=== PATIENT | female | born 1985 | race Caucasian/White ===

== ENCOUNTER → 2017-06-12 15:04 | Outpatient (CLI) | payer SELFPAY ==
[2017-06-12 18:15] LABS: Group B Strep DNA By PCR Negative (Negative); Internal Control PASS; Probe Check PASS; Specimen Processing Control PASS
== END ==
PROVIDERS: Visit Provider Obstetrics & Gynecology
DX: Z36.85 Encounter for antenatal screening for Streptococcus B (principal)
CPT/HCPCS: 87081; 87653

== ENCOUNTER 2017-07-18 03:20 | Inpatient (IN) | payer SELFPAY ==
[2017-07-18 03:43] VITALS: BMI 28.2
[2017-07-18] MEDS: Lactated Ringers 1,000 ML 50 ML IV ×5 (04:14→20:45)
[2017-07-18 04:48] LABS: Hemoglobin 12.5 g/dl (12.0-15.0); Mean Corp Hgb Conc 34.7 g/gl (32-36); Mean Corpuscular Hgb 33.6 pg (27.0-32.0); Mean Corpuscular Volume 96.8 fL (81-99); Mean Platelet Vol. 9.9 fl (6.2-12.0); Platelet Count 229 K/mm3 (150-450); RBC Distribution Width CV 11.8 % (11.6-14.6); RBC Distribution Width SD 40.1 fl (35.1-43.9); Red Blood Count 3.72 M/mm3 (4.2-5.4); White Blood Count 11.4 K/mm3 (4.4-11.0)
[2017-07-18 04:55] LABS: Scan Indicated on CBC? Y/N NO
[2017-07-18] MEDS: Amnioinfusion- 0.9% NS 1,000 ML IV.SOLN. 300 ML INTRA-UTER (07:08)
[2017-07-18] MEDS: Oxytocin 30 units/NS 500 ml 30 UNITS/500 ML IV.SOLN IV (07:40)
--- NOTE | 2017-07-18 08:19 | PCM.PN.BLA ---
Progress Note from check in on patient at approx 07:25 40 5/7 wk SROM Meconium stained fluid, mod Comfortable w/ epidural AVSS Pitocin not started yet EFM 130-140s with avg variability accels. Variable deceleration noted with exam and IUPC placement, scalp lead placed 1 1/2 min decel to 60-90 bpm UCs noted q 4-6 mins Do not appear adequate by MVU CX per last RN check / -2 A/P; 40 5/7 wk SROM mod mec. EFM overall reassuring category I tracing. UCs inadequate. Begin pitocin per protocol Amnioinfusion to start (one variable and for meconium) and IUPC placed to monitor adequate labor. Watch progress, descent and tolerance of labor.
--- NOTE | 2017-07-18 12:28 | PCM.PN.BLA ---
Progress Note LABOR PROGRESS NOTE Category I tracing as long as no Pitocin augmentation. AVSS EFM 130-140s avg variability. Accels. occasional early decelerations. Deep variables with pitocin (last one about 3 hr ago) UCS inadequate mVUs at 5-8 mins CX: last check 5-6/90/-2 A/P: continue spont labor. Likely to be C/S due to FTP / CPD. UCs inadequate and not able to start / continue Pitocin
[2017-07-18] MEDS: Ondansetron 4 MG/2 ML Vial IV (14:44)
--- NOTE | 2017-07-18 16:56 | PCM.PN.BLA ---
Progress Note LABOR PROGRESS NOTE Comfortable w/ epidural AVSS no pitocin at baby had not tolerated earlier in day IFM: category I tracing. 130s with avg variability. Good scalp stim with exam. Accels. UCs appear inadequate by mVUs CX: vtx remains high thick anterior lip 50%/ 6/ -2 with molding noted. A/P: 40 5/7 wk SROM progression to 6 cm. Inadequate UCs and pitocin off since this am. May restart pitocin in attempt for adequate UCs. Fetus has not tolerated this prior. continue observation of labor for now.
--- NOTE | 2017-07-18 19:54 | PCM.PN.OB ---
Subjective: Comfortable with epidural. Does not feel contractions. Objective: Afeb VSS. Contractions q4-5 minutes. FHR tracing CAT 1. - Physical Exam General: Alert, Oriented x3, Cooperative, No apparent distress Lungs: Clear to auscultation, Normal air movement Cardiovascular: Regular rate, Regular Rhythm Abdomen: Soft, Non Tender, Non-Distended, Gravid, Appropriate for Gestational Age Extremities: No edema Skin: No rashes Neurological: Neuro grossly intact Psych/Mental Status: Normal Affect Comment: CE FD +1 station Weight: 169 lb 8.568 oz Body Mass Index (BMI) 28.2 Intake and Output for Last 24 Hours 07/16/17 07/17/17 07/18/17 23:59 23:59 23:59 Intake Total 7060 / 7060 Output Total 3500 / 3500 Balance 3560 / 3560 Laboratory Tests Past 24 Hrs 07/18/17 07/18/17 04:14 04:14 WBC 11.4 H RBC 3.72 L Hgb 12.5 Hct 36.0 L MCV 96.8 MCH 33.6 H MCHC 34.7 RDW 11.8 RDW Differential 40.1 Plt Count 229 MPV 9.9 Blood Type O POSITIVE Antibody Screen NEGATIVE Assessment/Plan Will start pushing efforts.
[2017-07-18] MEDS: Oxytocin 30 units/NS 500 ml 30 UNITS/500 ML IV.SOLN 334 UNITS IV (22:19)
--- NOTE | 2017-07-18 22:46 | OP.PCM_ITS ---
- Problem List (1) Active labor at term Status: Acute Vaginal Delivery Maternal Presentation: Active Labor, Spontaneous Rupture of Membranes Presented at [id number] with SROM and contractions. Amniotic Membrane Rupture Type: Spontaneous at home Rupture of Membrane time: 129 Amniotic Fluid Description: Clear Final NKECHI: 07/13/17 Final NKECHI Source: US <20 weeks Gestational age: 40 Weeks and 5 Days Clifford doctor who attended delivery (if requested by OB): Kayli Dawkins Date of Procedure: 07/18/17 Pre-Operative Diagnosis: Labor Post-Operative Diagnosis: Same Surgery/ Procedure Performed: Vacuum Assisted Vaginal Delivery Anesthesiologist: Bert Carmona Type of Anesthesia: Epidural Description of Procedure: Amita progressed over the day to FD then pushed for 2 1/2 hours to bring the baby's head to +3 station. Due to maternal fatigue and swollen perineum decision made to assist delivery with Kiwi vacuum. The Kiwi was applied and using gentle traction over 2 pushing efforts the head was delivered to the perineum. The rest of the delivery was uncomplicated. There was an active cry at delivery. Delayed cord clamping was employed. Cord bloods were collected. Apgars were 8/9. The placenta was delivered spontaneously intact with a centrally located 3VC. The uterus contracted well. Inspection revealed an intact cervix and upper vagina. A second degree posterior vagina/perineal tear was repaired with 2-0 vicryl. A small left periurethral first degree tear was repaired with 3-0 Rapide suture. Presentation: Vertex Placental Delivery Description: Spontaneous Placenta Disposition: [facility] Percentage of Placenta Abruption: 0 Cord Vessel Description: 3 Vessels Nuchal Cord Compression: Without compression Cord Entanglement: None Drain: Ren to straight drain Estimated Blood Loss: 400cc Infant A gender: Male (1 minute): 8 (5 minute): 9 Episiotomy Description: None Laceration: Midline, Periurethral Extnsion/lac - first degree, Perineal Extension/lac, Vaginal Extension/lac, 2nd degree Medications given after delivery: IV Pitocin Complications: None
[2017-07-18] MEDS: Oxytocin 30 units/NS 500 ml 30 UNITS/500 ML IV.SOLN 167 UNITS IV (22:49)
--- NOTE | 2017-07-18 22:53 | DCINST_ITS ---
Discharge Diet: No Restrictions Discharge Activity: Return to Normal Activity, May Drive, May Shower Return to work on:: 09/17/17 May resume sexual activity in: 4-6 weeks Call your doctor if your incision/area has: Sudden Increased Bleeding, Increased Pain/ Swelling, Increased Redness, Foul Smelling Discharge Call your doctor if you observe: Fever of 101 or Higher, Inability to urinate, Inability to have a bowel movement, Using more than one pad per hour, Shortness of breath, Chest pain, Calf discomfort, Uncontrolled pain Cleanse incision/area with: Soap & Water Additional Instructions: If you experience any of the following, contact your healthcare provider. * Bleeding that soaks a pad every hour for 2 hours * Fever 100.4 or higher * Unrelieved incision or abdominal pain * Swelling, redness, discharge or bleeding from your incision or episiotomy site * Your incision begins to separate * Problems urinating (including inability to urinate or burning while urinating) . * Visual changes * Severe headache * Flu-like symptoms * Pain or redness in one of both of your breasts * Pain, warmth, tenderness or swelling in your legs, especially the calf area * Frequent nausea and vomiting * Symptoms of depression or anxiety If you experience any of the following, call 911 or go to the nearest Emergency Room. * Chest pain * Problems breathing * Seizure activity * Partial or complete paralysis of a body part, slurred speech, weakness or drooping of the face, or a sudden inability to walk or hold your balance Allergies/Adverse Reactions: Allergies No Known Allergies Allergy (Verified 05/01/15 18:42) Medications to take at Discharge Folic Acid 0.8 mg PO DAILY@0800 07/18/17 Ibuprofen [Motrin] 800 mg PO TID PRN PRN #30 tab 07/18/17 Vits [Prenatabs FA ] 1 tablet PO DAILY 07/18/17 The following prescriptions were given: Ibuprofen [Motrin] 800 mg PO TID PRN PRN #30 tab PRN Reason: Pain or cramping Please Follow Up With: Maria De Jesus Oconnor MD When: 6 weeks Primary Care Physician: Jann Rutledge MD [Primary Care Provider] - Proposed Discharge Date: 07/20/17
[2017-07-19 05:15] VITALS: BP 101/76; PULSE 103; RESP 18; TEMP 36.6
[2017-07-19 06:39] LABS: Hematocrit 31.6 % (37-47); Hemoglobin 10.7 g/dl (12.0-15.0); Mean Corp Hgb Conc 33.9 g/gl (32-36); Mean Corpuscular Hgb 33.6 pg (27.0-32.0); Mean Corpuscular Volume 99.4 fL (81-99); Mean Platelet Vol. 9.7 fl (6.2-12.0); Platelet Count 182 K/mm3 (150-450); RBC Distribution Width CV 11.9 % (11.6-14.6); RBC Distribution Width SD 41.8 fl (35.1-43.9); Red Blood Count 3.18 M/mm3 (4.2-5.4); White Blood Count 18.2 K/mm3 (4.4-11.0)
[2017-07-19 06:54] LABS: Scan Indicated on CBC? Y/N NO
--- NOTE | 2017-07-19 07:24 | PCM.PN.OB ---
Patient Problems: Active and Suspected Problems Active labor at term (Acute) Subjective: Cramping in minimal. She feels well this morning. Notes mild lightheadedness when out of bed once yesterday. No complaints. She is . Objective: AVSS - Physical Exam General: Alert, Oriented x3, Cooperative, No apparent distress HEENT: Atraumatic, Normocephalic Lungs: Clear to auscultation, Normal air movement Cardiovascular: Regular rate, Regular Rhythm, Normal S1, Normal S2 Abdomen: Soft, Non Tender, Non-Distended, - - Fundus firm, nontender at umbilicus - rectus diastasis, lochia scant, vulvar edema - mild Extremities: No edema, No Calf Tenderness Neurological: Neuro grossly intact Psych/Mental Status: Normal Affect, Appropriate, Alert and oriented to time, place, person, mood and affect Vital Signs Temp Pulse Resp BP 97.9 F 103 H 18 101/76 07/19/17 05:15 07/19/17 05:15 07/19/17 05:15 07/19/17 05:15 Oxygen Delivery Method Room Air Weight: 76.9 kg Body Mass Index (BMI) 28.2 Intake and Output for Last 24 Hours 07/17/17 07/18/17 07/19/17 23:59 23:59 23:59 Intake Total 7060 / 7060 Output Total 3500 / 3500 Balance 3560 / 3560 Laboratory Tests Past 24 Hrs 07/19/17 06:20 WBC 18.2 H RBC 3.18 L Hgb 10.7 L Hct 31.6 L MCV 99.4 H MCH 33.6 H MCHC 33.9 RDW 11.9 RDW Differential 41.8 Plt Count 182 MPV 9.7 Assessment/Plan Active and Suspected Problems Active labor at term (Acute) 32yo PPD#1 s/p VAVD doing well. -O positive, Rubella immune - -Routine care
[2017-07-19] MEDS: Folic Acid 1 MG Tablet PO (08:21)
[2017-07-19] MEDS: Acetaminophen 500 MG Tablet 1000 MG PO ×2 (08:21→17:43)
[2017-07-19 08:25] VITALS: BP 102/65; PULSE 90; RESP 20; TEMP 36.8
[2017-07-19] MEDS: Ibuprofen 600 MG Tablet PO ×2 (10:56→19:36)
[2017-07-19] MEDS: Prenatal Vits Tablet 1 TABLET PO (10:56)
[2017-07-19 13:20] VITALS: BP 103/66; PULSE 82; TEMP 36.6
[2017-07-19 16:00] VITALS: BP 112/70; PULSE 98; RESP 18; TEMP 36.7
[2017-07-19 19:35] VITALS: BP 123/71; PULSE 99; RESP 17; TEMP 36.7; O2SAT 98
[2017-07-20 02:00] VITALS: BP 104/69; PULSE 96; RESP 16; TEMP 36.5
[2017-07-20 09:27] VITALS: BP 121/76; PULSE 99; RESP 16; TEMP 36.6; O2SAT 98
[2017-07-20] MEDS: Folic Acid 1 MG Tablet PO (09:35)
[2017-07-20] MEDS: Ibuprofen 600 MG Tablet PO (09:35)
[2017-07-20] MEDS: Prenatal Vits Tablet 1 TABLET PO (09:35)
--- NOTE | 2017-07-20 10:05 | PCM.PN.OB ---
Patient Problems: Active and Suspected Problems Active labor at term (Acute) Subjective: PPD#2 Vacuum assisted vaginal delivery Doing well. breast feeding. Pain control adequate and minimal bleeding. No concerns voiced. - Physical Exam General: Alert, Oriented x3, Cooperative, No apparent distress HEENT: Atraumatic Neck: Supple Abdomen: Soft - NT. Fundus at 2-3 cm inferior to umbilicus Neurological: Cranial nerves II-XII grossly intact Psych/Mental Status: Normal Affect Vital Signs Temp Pulse Resp BP Pulse Ox 97.8 F 99 16 121/76 H 98 07/20/17 09:27 07/20/17 09:27 07/20/17 09:27 07/20/17 09:27 07/20/17 09:27 Oxygen Delivery Method Room Air Weight: 76.9 kg Body Mass Index (BMI) 28.2 Intake and Output for Last 24 Hours 07/18/17 07/19/17 07/20/17 23:59 23:59 23:59 Intake Total 7060 / 7060 Output Total 3500 / 3500 1150 / 1150 Balance 3560 / 3560 -1150 / -1150 Assessment/Plan Active and Suspected Problems Active labor at term (Acute) PPD#2 vacuum assisted vaginal delivery Doing well. D/c home today RTO in 6 wk for pp check.
[2017-07-20 13:27] VITALS: BP 117/74; PULSE 105; RESP 18; TEMP 36.6; O2SAT 99
== END 2017-07-20 14:55 | disposition home or self-care (01) | DRG 774 ==
PROVIDERS: Obstetrics & Gynecology; Admitting Provider Obstetrics & Gynecology; Family Provider Family Medicine; PCP Family Medicine; Visit Provider Obstetrics & Gynecology
DX: O76 Abnormality in fetal heart rate and rhythm complicating labor and delivery (principal); O44.22 Partial placenta previa NOS or without hemorrhage, second trimester; O42.02 Full-term premature rupture of membranes, onset of labor within 24 hours of rupture; O77.0 Labor and delivery complicated by meconium in amniotic fluid; O75.81 Maternal exhaustion complicating labor and delivery; O70.1 Second degree perineal laceration during delivery; O71.82 Other specified trauma to perineum and vulva; Z37.0 Single live birth; Z3A.40 40 weeks gestation of pregnancy
CPT/HCPCS: 59025; 59050; 85027; 86850; 86900; 93460; 99218; J7030; J7120; G0378; J2405

== ENCOUNTER 2020-01-15 10:12 | Emergency (ER) | payer OTHER, SELFPAY ==
[2020-01-15 10:14] VITALS: BP 131/83; PULSE 99; RESP 16; TEMP 36.5; O2SAT 100; BMI 26.6
--- NOTE | 2020-01-15 10:39 | CT_ITS ---
STUDY: CT ABDOMEN AND PELVIS WITH CONTRAST REASON FOR EXAM: Female, 34 years old. RLQ pain x 2 days, worse today, loose stool. Hx ovarian cysts. RADIATION DOSAGE (If Supplied By Facility): CTDIvol = ( 12.70 ) mGy, DLP = ( 949.76 ) mGycm TECHNIQUE: Transaxial images were obtained from the dome of the diaphragm to the symphysis pubis with oral contrast. Oral and amp; IV Gastrografin and amp; 100mL Isovue-300 was administered. Sagittal and coronal images were reconstructed. Individualized dose optimization techniques were used for this CT. COMPARISON: None. FINDINGS: The visualized lung bases are unremarkable. The visualized portions of the heart are within normal limits. There is a 8 mm well-defined cyst in the inferior aspect of the right lobe of the liver. Normal gallbladder and extrahepatic biliary system. Normal spleen. Normal pancreas. Normal bilateral adrenal glands. Mild degree of right hydronephrosis and hydroureter most likely secondary to the distended urinary bladder. Normal left kidney. There is a small hiatal hernia. Abnormal thickening of the cecum and ascending colon with thickening of the terminal ileum. Inflammatory bowel disease should be ruled out. The appendix is visualized and appears normal. Small lymph nodes are seen in the right lower quadrant suggestive of mesenteric adenitis. Normal abdominal aorta. Normal inferior vena cava. Normal retroperitoneum. Distended urinary bladder small bilateral ovarian follicles. There is a small umbilical hernia containing fat. Normal osseous structures. CT/Abdomen/Pelvis WITH Contrast IMPRESSION: Changes involving the terminal ileum and the right hemicolon suggestive of possible inflammatory bowel disease. Small mesenteric lymph nodes are seen in the right lower quadrant. Distended urinary bladder with mild degree of right hydronephrosis. Small bilateral ovarian follicles. Electronically Signed: Young Mendoza, at 12:57 EDT , Service support ,
[2020-01-15] MEDS: 0.9% Normal Saline 1,000 ML 125 ML IV (11:05)
[2020-01-15 11:11] LABS: Absolute Lymphocyte Count 1.34 X10^3/uL (0.83-4.51); Absolute Neutrophil Count 6.8 X10^3/uL (2.0-7.7); Basophil# 0.03 X10^3/uL; Basophil% 0.3 % (0-1); Eosinophils% 1.2 % (0-5); Hematocrit 43.3 % (37-47); Hemoglobin 14.3 g/dL (12.0-15.0); Lymphocyte # 1.34 X10^3/ul (4.0); Lymphocyte % 15.5 % (19-41); Mean Corpuscular Hgb 32.3 pg (27.0-32.0); Mean Corpuscular Volume 97.7 fL (81-99); Mean Platelet Vol. 9.8 fl (6.2-12.0); Monocyte# 0.34 X10^3/uL; Monocyte% 3.9 % (0-10); NRBC Flagged by Analyzer 0 % (0-5); Neutrophil # 6.77 X10^3/uL (2.7-7.7); Neutrophil % 78.6 % (47-70); Platelet Count 275 K/mm3 (150-450); RBC Distribution Width CV 11.7 % (11.6-14.6); RBC Distribution Width SD 42.1 fl (35.1-43.9); Red Blood Count 4.43 M/mm3 (4.2-5.4); White Blood Count 8.6 K/mm3 (4.4-11.0)
--- NOTE | 2020-01-15 11:17 | ED.DCSUM_ITS ---
- ER Visit Summary Date of Service: 01/15/20 Chief Complaint: [Abdominal pain] History of Present Illness: The patient is a 34 F [presents to the emergency department complaint of abdominal pain over the last 2 days. Patient states the pain initially was intermittent but last night became continuous and more severe. She states at times the pain will radiate down her right leg. She denies any pain in her back. She had no nausea or vomiting. She is had no fever. Patient has had history of ovarian cyst in the past. Patient has had increased amount of stool but it is not been watery or diarrhea like. Her last menstrual period was 1 week ago. Patient has not had any prior surgical history. Patient rates her pain a 10 out of 10 currently.] Physical Examination: [HEENT-PERRLA, EOMI. Cranial nerves II through XII grossly intact. TMs clear. Mucous membranes moist. No adenopathy. Cardiovascular-regular rate and rhythm without murmur or ectopy Lungs-clear to auscultation, chest wall stable without crepitus or subcu emphysema Abdomen-normoactive bowel sounds, soft. Patient has tenderness to palpation over the right lower quadrant with guarding. Patient has mild tenderness over the right upper quadrant. Negative Maynard sign. No CVA tenderness. No rebound, rigidity, or pedal signs noted. No masses palpated. Extremities-intact ?4, normal range of motion, normal pulses, atraumatic] Test Results: [CBC with it was normal. Chemistries normal. LFTs normal. CT scan of the abdomen pelvis showed some thickening of the right side of the colon suggestive of an inflammatory bowel disease. Patient also had small mesenteric lymph nodes seen in the right lower quadrant. Patient had distended urinary bladder and mild degree of right hydronephrosis. Patient has small bilateral ovarian follicles.] Emergency Department Course and Treatment: [She had an IV line established on arrival. She denies anything for pain.] Treatment Plan: [This was discussed with general surgeon on-call Dr. Oleg Mendes who would be happy to see patient in the office. At this point patient looks well clinically. Patient advised to return if worsening pain, fever, bloody stools, or condition should worsen anyway. There is no family history of inflammatory bowel disease and patient has never been diagnosed with inflammatory bowel disease. She understands she may need further work-up including possibly colonoscopy.] Disposition: [Discharged home in stable condition] Impression: [Abdominal pain-etiology uncertain] This note was generated with [employer] dictation software. It may contain incorrect words, spelling, and punctuation that were not noted in review of the chart prior to signing ED Disposition - Plan for ED Patient: Referrals: Jann Rutledge MD [Primary Care Provider] -
[2020-01-15 11:26] LABS: ALB/GLOB Ratio 1.2 RATIO (0.9-2.4); AST(SGOT) 16 U/L (15-37); Alanine Aminotransfer ALT/SGPT 23 U/L (13-56); Albumin, Serum 4.5 g/dL (3.2-5.0); Alkaline Phosphatase 60 U/L (45-117); Anion Gap 4 (5-15); BUN 10 mg/dL (7-18); BUN/Creat Ratio 13.1 RATIO (10-20); Chloride 105 mmol/L (98-107); Creatinine, Serum 0.76 mg/dL (0.55-1.02); EST Glomerular Filtration Rate 92 mL/min (>60); Est Glom Filt Rate - Afr Amer 112 mL/min (>60); Estimated Creatinine Clearance 98.56 ml/min; Globulin 3.9 g/dL (2.2-4.2); Glucose 100 mg/dL (74-106); Potassium 3.7 mmol/L (3.5-5.1); Protein, Total 8.4 g/dL (6.4-8.2); Sodium Level 138 mmol/L (136-145)
[2020-01-15 11:36] LABS: Internal QC Validated? YES +Cl - CLEAR BKGD; Pregnancy, Serum, hCG Quali. NEGATIVE Negative
[2020-01-15 12:49] LABS: Bacteria 0 SEEN /hpf (None Seen); Mucous, Urine 0 SEEN /hpf (<or=2+); Red Blood Cells-Urine 0 SEEN /hpf (0-5); White Blood Cells 0 SEEN /hpf (0-5)
[2020-01-15 12:51] LABS: Color, Urine Straw (Yellow); Glucose, Dipstick Normal (Normal); Ketone-Dipstick Negative (Negative); Leukocyte Esterase-Dipstick Negative /ul (Negative); Nitrite-Dipstick Negative (Negative); Occult Blood-Urine Negative /ul (Negative); Protein-Dipstick Negative (Negative); Urine Bilirubin Dipstick Negative (Negative); Urine Clarity Clear (Clear); Urine Urobilinogen Normal (Normal); Urine pH 6.5 (5.0 - 8.0)
[2020-01-15 13:00] LABS: Squamous Epithelial Cells - UA 0-5 SEEN /hpf (5-10)
--- NOTE | 2020-01-15 13:44 | ED.DEP ---
ED Disposition - Plan for ED Patient: Instructions: ED Abdominal Pain Unkn Cause Fem Referrals: Jann Rutledge MD [Primary Care Provider] - Oleg Mendes MD [STAFF PHYSICIAN] - 3-5 Days
[2020-01-15 13:55] VITALS: BP 126/92; PULSE 102; RESP 16; O2SAT 99
== END 2020-01-15 13:56 | disposition home or self-care (01) ==
PROVIDERS: Emergency Provider Emergency Medicine; PCP Family Medicine
DX: R10.9 Unspecified abdominal pain (principal)
CPT/HCPCS: 74177; 80053; 81001; 84703; 85025; 96360; 96361; 99283; Q9967; A4216

== ENCOUNTER → 2024-11-26 | Outpatient (CLI) | payer SELFPAY ==
--- NOTE | 2024-11-26 07:57 | US_ITS ---
PROCEDURE: ABDOMEN LIMITED N/A REASON FOR EXAM: RUQ PAIN COMPARISON: Prior CT scan of the abdomen and pelvis dated January 15, 2000. FINDINGS: Liver: Grossly normal size and echotexture. Liver measures 15 cm. Gallbladder: Surgically absent. Common bile duct: Normal measuring 5 mm . Pancreas: Normal Other: Visualized portions of the right kidney are unremarkable. No right upper quadrant ascites. US/Abdomen Limited IMPRESSION: Status post cholecystectomy. No acute abnormality is seen. Reading Location: [place] [id number]
--- NOTE | 2024-11-26 07:57 | US_ITS ---
PROCEDURE: ABDOMEN LIMITED N/A REASON FOR EXAM: RUQ PAIN COMPARISON: Prior CT scan of the abdomen and pelvis dated January 15, 2000. FINDINGS: Liver: Grossly normal size and echotexture. Liver measures 15 cm. Gallbladder: Surgically absent. Common bile duct: Normal measuring 5 mm . Pancreas: Normal Other: Visualized portions of the right kidney are unremarkable. No right upper quadrant ascites. US/Abdomen Limited IMPRESSION: Status post cholecystectomy. No acute abnormality is seen. Reading Location: [place] [id number]
== END | disposition home or self-care (01) ==
LOC: US 07:57
PROVIDERS: PCP Physician Assistant; Referring Provider Student in an Organized Health Care Education/Training Program; Visit Provider Student in an Organized Health Care Education/Training Program
DX: R10.9 Unspecified abdominal pain (principal)
CPT/HCPCS: 76705